=== PATIENT | female | born 1990 | race Caucasian/White ===

== ENCOUNTER 2020-12-06 20:22 | Emergency (ER) | payer OTHER ==
[~2020-12-06 20:22] MED LIST: COLACE 100MG C100 MG PO
== END 2020-12-06 21:30 | disposition left against medical advice (07) ==
LOC: ER1 20:22
DX: Z53.21 Procedure and treatment not carried out due to patient leaving prior to being seen by health care provider (principal)

== ENCOUNTER 2020-12-07 10:44 | Emergency (ER) | payer OTHER | END 2020-12-07 12:29 | disposition home or self-care (01) | LOC: ER1 10:44 | DX: S93.402A Sprain of unspecified ligament of left ankle, initial encounter (principal); X50.1XXA Overexertion from prolonged static or awkward postures, initial encounter; Y92.39 Other specified sports and athletic area as the place of occurrence of the external cause | CPT/HCPCS: 73610; 99283 ==

== ENCOUNTER 2021-02-15 04:46 | Emergency (ER) | payer OTHER ==
[2021-02-15] MEDS ORDERED: AUGMENTIN 875-1 EACH PO (05:30)
== END 2021-02-15 05:57 | disposition home or self-care (01) ==
LOC: ER1 04:46
DX: S61.051A Open bite of right thumb without damage to nail, initial encounter (principal); L03.113 Cellulitis of right upper limb; W55.01XA Bitten by cat, initial encounter; Y92.009 Unspecified place in unspecified non-institutional (private) residence as the place of occurrence of the external cause; Z23 Encounter for immunization
CPT/HCPCS: 73140; 90471; 90715; 99283